=== PATIENT | male | born 2000 | race Caucasian/White ===

== ENCOUNTER 2022-12-16 09:03 | Emergency (ER) | payer SELFPAY ==
[2022-12-16 09:50] LABS: ANION GAP 7.9 mmol/L (5-15)
== END 2022-12-16 10:20 | disposition home or self-care (01) ==
LOC: KA.ED 09:03
DX: R07.82 Intercostal pain (principal)
CPT/HCPCS: 36415; 71045; 80048; 85025; 85379; 93010; 99284; 99285